=== PATIENT | female | born 1980 | race Caucasian/White ===

== ENCOUNTER 2017-09-14 16:38 | Emergency (ER) | payer MEDICAID ==
[2017-09-14 18:35] LABS: INTERNATIONAL RATION (INR) 2.88; PROTHROMBIN TIME 31.5 SEC (11.4-15.4)
--- NOTE | 2017-09-14 19:40 | ER Document Report ---
HPI - HPI Patient complains to provider of: med refill Onset: Other Quality of pain: No pain Severity: None Pain Level: Denies Context: 37-year-old female presented to ED for a refill on Coumadin. She states she is from [place] and is going to be in [place] until November and she did not realize she did not have refills on her Coumadin. She states she called her primary doctor in [place] and they said they would not refill her prescription without a office visit. Patient is alert and oriented respirations regular unlabored pupils equal and react to light denies any discomfort. She states she is taken the Coumadin for a stroke and she has been on the exact same dose for over 3 years. I consulted my attending physician Dr. Velasco stated as long as her INR was between 2 and 3 that I should refill that prescription for 30 days. PT/INR will be ordered. Associated Symptoms: None Exacerbated by: Denies Relieved by: Denies - ROS ROS below otherwise negative: Yes - CONSTITUTIONAL Constitutional: DENIES: Fever, Chills - EENT EENT: DENIES: Sore Throat, Ear Pain, Nasal Drainage-Clear, Nasal Drainage- Purulent, Congestion, Eye problems - NEURO Neurology: DENIES: Headache, Weakness, Vision blurred, Dizzinesss / Vertigo - CARDIOVASCULAR Cardiovascular: DENIES: Chest pain - RESPIRATORY Respiratory: DENIES: Trouble Breathing, Coughing - GASTROINTESTINAL Gastrointestinal: DENIES: Abdominal Pain, Nausea, Patient vomiting, Diarrhea, Constipation, Black / Bloody Stools - URINARY Urinary: DENIES: Dysuria, Urgency, Frequency - REPRODUCTIVE Reproductive: DENIES: :, Postmenopausal, Abnormal bleeding / discharge - MUSCULOSKELETAL Musculoskeletal: DENIES: Extremity pain, Back Pain, Neck Pain, Swelling - DERM Skin Color: Normal Skin Problems: None Past Medical History - General Information source: Patient - Social History Smoking Status: Never Smoker Cigarette use (# per day): No Chew tobacco use (# tins/day): No Smoking Education Provided: No Frequency of alcohol use: Social - Couple times a week Drug Abuse: None Occupation: None Lives with: Family Family History: Reviewed & Not Pertinent Patient has suicidal ideation: No Patient has homicidal ideation: No - Past Medical History Cardiac Medical History: Reports: Hx Hypertension Pulmonary Medical History: Reports: None EENT Medical History: Reports: None Neurological Medical History: Reports: Hx Cerebrovascular Accident Endocrine Medical History: Reports: None Renal/ Medical History: Reports: None Malignancy Medical History: Reports: Other - Endometriosis GI Medical History: Reports: None Musculoskeletal Medical History: Reports Hx Musculoskeletal Deformity, Reports Hx Musculoskeletal Trauma Skin Medical History: Reports None Psychiatric Medical History: Reports: None Traumatic Medical History: Reports: None Infectious Medical History: Reports: None Past Surgical History: Reports: Hx Orthopedic Surgery - left ankle - Immunizations Immunizations up to date: Yes Vertical Provider Document - CONSTITUTIONAL Agree With Documented VS: Yes Exam Limitations: No Limitations General Appearance: WD/WN - INFECTION CONTROL TRAVEL OUTSIDE OF THE [place] IN LAST 30 DAYS: No - HEENT HEENT: Atraumatic, Normal ENT Exam, Normocephalic, PERRLA - NECK Neck: Normal Inspection, Supple - RESPIRATORY Respiratory: Breath Sounds Normal, No Respiratory Distress - CARDIOVASCULAR Cardiovascular: Regular Rate, Regular Rhythm - GI/ABDOMEN Gastrointestinal: Abdomen Soft, Abdomen Non-Tender, No Organomegaly, Normal Bowel Sounds - REPRODUCTIVE Female Genitalia: Normal Inspection - BACK Back: Normal Inspection - MUSCULOSKELETAL/EXTREMETIES Musculoskeletal/Extremeties: MAEW, FROM, Non-Tender - NEURO Level of Consciousness: Awake, Alert, Appropriate Motor/Sensory: No Motor Deficit, No Sensory Deficit, No Pronator Drift Deep Tendon Reflexes: 2+ - DERM Integumentary: No Rash Course - Re-evaluation Re-evalutation: 09/14/17 21:03 INR was 2.88. Patient was written a prescription for Coumadin. Patient was given a list of local doctors and told to follow-up before getting another prescription. - Vital Signs Vital signs: Temp Pulse Resp BP Pulse Ox 99.3 F 98 16 135/91 H 97 09/14/17 16:49 09/14/17 16:49 09/14/17 16:49 09/14/17 16:49 09/14/17 16:49 - Laboratory Laboratory results interpreted by me: 09/14/17 18:17 PT 31.5 H Discharge - Discharge Clinical Impression: Medication refill Condition: Stable Disposition: HOME, SELF-CARE Instructions: Family Physicians / Practices Additional Instructions: Coumadin (warfarin) Coumadin slows the clotting of the blood. It's sometimes called a "blood thinner." Coumadin makes it less likely that you'll have a blood clot, heart attack, or stroke. Coumadin works in the liver, which makes blood clotting enzymes. You must have a lab test (PT or pro-time) periodically to measure the effectiveness of Coumadin. Too much Coumadin makes you prone to bleeding; too little makes you prone to blood clots. Never change the dose of Coumadin without your doctor's advice. New medicines can change the effects of Coumadin. Never add a new drug without discussing it with the doctor who oversees your "blood thinning." If the drug can affect Coumadin, you'll need more frequent PT tests for a while. Vitamin K reverses the effects of Coumadin. Don't take extra vitamin K without discussing it with your doctor. You can take Tylenol (acetaminophen) for occasional pains. DO NOT use aspirin, ibuprofen (such as Advil), ketoprofen (Orudis), or naproxen (Aleve) unless your doctor approves it. You should NOT use Coumadin if you are or have active (new) or bleeding ulcers. Contact your doctor at once if you develop black tarry stool, rash, purple toes, worsening headache, loss of vision, numbness or weakness. Get immediate medical care if you are vomiting blood or passing bloody bowel movements, are lightheaded, or have a severe nosebleed. Your PT/INR is PT was 31.5 and her INR is 2.8 this is therapeutic. I will refill the prescription for 1 month but she will have to see a doctor before getting this refilled again. Prescriptions: Warfarin Sodium [Coumadin 5 mg Tablet] 5 mg PO QHS #30 tablet Forms: Elevated Blood Pressure Referrals: SULEMA MAYBERRY MD [NO LOCAL MD] - Follow up as needed
[2017-09-14 19:59] VITALS: BP 132/82
== END 2017-09-14 20:03 | disposition home or self-care (01) ==
LOC: ER 16:38
DX: Z76.0 Encounter for issue of repeat prescription (principal); Z86.73 Personal history of transient ischemic attack (TIA), and cerebral infarction without residual deficits; I10 Essential (primary) hypertension
CPT/HCPCS: 36415; 85610; 99282